=== PATIENT | female | born 1940 | race African-American/Black ===

== ENCOUNTER 2017-06-15 14:23 | Emergency (ER) | payer OTHER ==
[2017-06-15 14:40] VITALS: BP 134/54; PULSE 99; TEMP 98.3; BMI 32.1
--- NOTE | 2017-06-15 16:57 | PDOC ---
History of Present Illness - General Chief Complaint: Injury Stated Complaint: FALL Time Seen by Provider: 06/15/17 16:03 History Source: Patient Exam Limitations: No Limitations - History of Present Illness Initial Comments: 06/15/17 17:18 Chief complaint: Right knee pain with swelling of upper calf History of present illness: Patient is a 77-year-old female with history of hypertension, hyperlipidemia, GERD, congestive heart failure, insulin-dependent diabetes, complaining of right knee pain after falling on her right knee on . Patient reports that she was able to get up. Patient has noticed that she has increased swelling to her right knee and her right upper posterior calf swelling. Pt. also reports h/o DVT in the past. Pt. is ambulating with slight limp. Occurred: reports: other (06/10/17) Severity: reports: moderate Pain Location: reports: lower extremity (RT. KNEE/CALF) Method of Injury: Yes: fall Modifying Factors: improves with: None Loss of Consciousness: no loss of consciousness Associated Symptoms (Fall): trouble walking Past History - Past Medical History Allergies/Adverse Reactions: Allergies Allergy/AdvReac Type Severity Reaction Status Date / Time No Known Allergies Allergy Verified 06/15/17 14:41 Home Medications: Ambulatory Orders Amlodipine Besylate 5 mg PO BID 07/29/16 Aspirin [ASA -] 81 mg PO DAILY 07/29/16 Atorvastatin Ca [Lipitor] 80 mg PO HS 07/29/16 Losartan Potassium 25 mg PO DAILY 07/29/16 Metoprolol Tartrate 25 mg PO BID 07/29/16 Furosemide [Lasix -] 40 mg PO BID@0600,1400 #60 tablet 08/03/16 Insulin (Levemir) [Levemir Vial] 23 units SQ BIDI #1 box 08/03/16 Insulin Detemir [Levemir Flextouch] 23 unit SQ BID #1 box 08/03/16 Miscellaneous Drug Not In Syst [Outpatient Lab Test] 1 syringe SCJ BID #60 06/09 Cardiac Disorders: Yes Diabetes: Yes HTN: Yes Hypercholesterolemia: Yes - Surgical History Cardiac Surgery: Yes Cholecystectomy: Yes - Suicide/Smoking/Psychosocial Hx Smoking History: Never smoked Hx Alcohol Use: No Drug/Substance Use Hx: No Review of Systems - Review of Systems Able to Perform ROS?: Yes Constitutional: No: Symptoms Reported HEENTM: No: Symptoms Reported Respiratory: Yes: Symptoms reported Cardiac (ROS): No: Symptoms Reported ABD/GI: No: Symptoms Reported : No: Symptoms Reported Musculoskeletal: Yes: Joint Pain (RT. KNEE PAIN ANTERIOR), Joint Swelling (RT. KNEE ), Muscle Pain (RT. POSTERIOR PROXIMAL CALF WITH SWELLING ) Integumentary: No: Symptoms Reported Neurological: No: Symptoms reported *Physical Exam - Vital Signs Last Vital Signs Temp Pulse Resp BP Pulse Ox 98.3 F 99 H 20 134/54 97 06/15/17 14:38 06/15/17 14:38 06/15/17 14:38 06/15/17 14:38 06/15/17 14:38 - Physical Exam General Appearance: Yes: Appropriately Dressed Respiratory/Chest: positive: Lungs Clear, Normal Breath Sounds. negative: Chest Tender, Respiratory Distress Cardiovascular: positive: Regular Rhythm, Regular Rate, S1, S2 Vascular Pulses: Dorsalis-Pedis (R): 4+ Extremity: positive: Normal Capillary Refill, Normal Range of Motion (NEGATIVE ANTERIOR/POSTERIOR DRAWER), Tender (ANTERIOR LEFT PATELLA), Swelling (LEFT PATELLA ), Calf Tenderness (LEFT POSTERIOR PROXIMAL CALF TENDERNESS WITH SWELLING ) Integumentary: positive: Normal Color Neurologic: positive: Alert, Normal Response, Respond to painful stimul (LEFT KNEE/LEG ), Responsive. negative: Numbness, Sensory Deficit ED Treatment Course - RADIOLOGY Radiology Studies Ordered: Category Date Time Status KNEE 3 POS-RIGHT [RAD] Stat Radiology 06/15/17 16:52 Ordered Medical Decision Making - Medical Decision Making 06/15/17 17:25 Patient is a 77-year-old female with history of hypertension, hyperlipidemia, GERD, congestive heart failure, insulin-dependent diabetes, complaining of right knee pain after falling on her right knee on 06/10/2017. Patient reports that she was able to get up. Patient has noticed that she has increased swelling to her right knee and her right upper posterior calf swelling. Pt. also reports h/o DVT in the past. Pt. is ambulating with slight limp. r/o arnie abnormality left knee r/o DVT left leg PLAN: xray left knee DJD no acute pathology noted ultrasound Venous doppler right negative for DVT per Dr. Gann follow up with orthopedist tomorrow 06/15/17 17:38 06/15/17 19:51 06/16/17 17:31 *DC/Admit/Observation/Transfer Diagnosis at time of Disposition: Right anterior knee pain, Calf swelling Fall Qualifiers: Encounter type: initial encounter Qualified Code(s): W19.XXXA - Unspecified fall, initial encounter - Discharge Dispostion Disposition: HOME Condition at time of disposition: Stable - Referrals Referrals: Jaron Godoy MD [Primary Care Provider] - Donald Sandoval MD [Staff Physician] - - Patient Instructions Additional Instructions: Follow up With orthopedist for further evaluation tomorrow follow-up with your primary care provider for further evaluation also wear Femi wrap during the day take off at night Acetaminophen (tylenol) as needed as directed by pipe fitter marine returm to emergency room if symptoms worsen Patient voiced understanding of discharge instructions - Post Discharge Activity
== END 2017-06-15 20:03 | disposition home or self-care (01) ==
LOC: JERFT 14:23
DX: M25.561 Pain in right knee (principal); R22.41 Localized swelling, mass and lump, right lower limb; W19.XXXA Unspecified fall, initial encounter; Y93.89 Activity, other specified; Y92.89 Other specified places as the place of occurrence of the external cause; Y99.8 Other external cause status; I25.10 Atherosclerotic heart disease of native coronary artery without angina pectoris; I11.0 Hypertensive heart disease with heart failure; E78.5 Hyperlipidemia, unspecified; K21.9 Gastro-esophageal reflux disease without esophagitis; E11.9 Type 2 diabetes mellitus without complications; Z79.4 Long term (current) use of insulin
CPT/HCPCS: 73562-TC-RT; 93971-TC; 99281-25